=== PATIENT | female | born 1975 | race Caucasian/White ===

== ENCOUNTER 2018-11-21 08:19 | Day surgery (SDC) | payer MEDICAID ==
[~2018-11-21 08:19] MED LIST: Lactated Ringers 1,000 ML IV SCH; Sodium Chloride 0.9% 10 ML Syringe FLUSH PRN; Sodium Chloride 0.9% 2.5 ML Syringe FLUSH PRN
[2018-11-21] MEDS ORDERED: Scopolamine 1.5 MG Transdermal Patch TRDERM PRN (08:42)
[2018-11-21] MEDS ORDERED: Scopolamine 1.5 MG Transdermal Patch ONE (08:44)
--- NOTE | 2018-11-21 08:48 | PCM.PREANE ---
Preanesthetic Assessment - Anesthesia/Transfusion/Family Hx Anesthesia History: Prior Anesthesia Without Reaction Family History of Anesthesia Reaction: No Transfusion History: No Prior Transfusion(s) Intubation History: Unknown - Review of Systems General: No Symptoms Pulmonary: No Symptoms Cardiovascular: No Symptoms Gastrointestinal: Constipation, Difficulty Swallowing Neurological: No Symptoms Other: Reports: None - Physical Assessment O2 Sat by Pulse Oximetry: 98 Respiratory Rate: 16 Vital Signs: Last Vital Signs Temp 36.1 C 11/21/18 08:34 Pulse 78 11/21/18 08:34 Resp 16 11/21/18 08:34 BP 120/76 11/21/18 08:34 Pulse Ox 98 11/21/18 08:34 Height: 1.63 m Weight: 88.904 kg ASA Class: 2 Mental Status: Alert & Oriented x3 Airway Class: Mallampati = 2 Dentition: Reports: Normal Dentition Thyro-Mental Finger Breadths: 2 Mouth Opening Finger Breadths: 3 ROM/Head Extension: Full Lungs: Clear to Auscultation, Normal Respiratory Effort Cardiovascular: Regular Rate, Regular Rhythm - Allergies Allergies/Adverse Reactions: Allergies Allergy/AdvReac Type Severity Reaction Status Date / Time Penicillins Allergy Anaphylactic Verified 11/19/18 08:06 Shock - Blood Blood Available: No - Anesthesia Plan Pre-Op Medication Ordered: None - Acknowledgements Anesthesia Type Planned: MAC Pt an Appropriate Candidate for the Planned Anesthesia: Yes Alternatives and Risks of Anesthesia Discussed w Pt/Guardian: Yes Pt/Guardian Understands and Agrees with Anesthesia Plan: Yes PreAnesthesia Questionnaire HEENT History: Reports: Other (See Below) Other HEENT History: wears glasses Cardiovascular History: Reports: Hypertension Respiratory History: Reports: SOB Other Respiratory History: SOB on exertion, can't walk 2 blocks without SOB - recent PFTs [place] Gastrointestinal History: Reports: GERD Genitourinary History: Reports: None 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: Reports: 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 Musculoskeletal History: Reports: Other (See Below) Other Musculoskeletal History: generalized chronic muscle pain Neurological History: Reports: Migraines Psychiatric History: Reports: Anxiety, Depression Endocrine/Metabolic History: Reports: Hypothyroidism, Obesity/BMI 30+ Immunologic History: Reports: Other (See Below) (possible autoimmune disorder) - Past Surgical History Head Surgeries/Procedures: Reports: None Female Surgical History: Reports: Hysterectomy, LEEP Other Female Surgeries/Procedures: exploratory laparoscopy x5 Endocrine Surgical History: Reports: Thyroidectomy - SUBSTANCE USE Smoking Status *Q: Never Smoker Recreational Drug Use History: No - HOME MEDS Home Medications: Home Meds Azelastine/Fluticasone [Dymista Nasal [place]] 2 spray NASBOTH DAILY 11/19/18 [ History] Calcium Carbonate [Calcium] 1 tab PO DAILY 11/19/18 [History] Cholecalciferol (Vitamin D3) [Vitamin D3] 2 tab PO DAILY 11/19/18 [History] DULoxetine HCl [Cymbalta] 30 mg PO BID 11/19/18 [History] Levothyroxine Sodium [Synthroid] 125 mcg PO DAILY 11/19/18 [History] Lisinopril/Hydrochlorothiazide [Lisinopril-Hctz 10-12.5 mg Tab] 1 tab PO DAILY 11/19/18 [History] Multivitamin [Multivitamins] 1 tab PO DAILY 11/19/18 [History] [place]-3/DHA/Epa/Fish Oil [[place]-3 Fish Oil 1,000 MG Sfgl] 1,000 mg PO DAILY 03/02 [History] Ranitidine HCl [Ranitidine] 300 mg PO DAILY 11/19/18 [History] Rizatriptan Benzoate [Rizatriptan] 10 mg PO ASDIRECTED PRN 11/19/18 [History] busPIRone [Buspar] 10 mg PO DAILY 11/19/18 [History] - CURRENT (IN HOUSE) MEDS Current Meds: Current Medications Lactated Ringer's (Ringers, Lactated) 1,000 mls @ 125 mls/hr IV ASDIRECTED [facility] Last Admin: 11/21/18 08:41 Dose: 125 mls/hr Sodium Chloride (Saline Flush) 10 ml FLUSH ASDIRECTED PRN PRN Reason: Keep Vein Open Sodium Chloride (Saline Flush) 2.5 ml FLUSH ASDIRECTED PRN PRN Reason: Keep Vein Open Sodium Chloride (Saline Flush) 10 ml FLUSH ASDIRECTED PRN PRN Reason: Keep Vein Open Sodium Chloride (Saline Flush) 2.5 ml FLUSH ASDIRECTED PRN PRN Reason: Keep Vein Open
[2018-11-21] MEDS ORDERED: Midazolam 1 MG/ML 2 ML SDV ONE (10:56)
[2018-11-21] MEDS ORDERED: fentaNYL 100 MCG/2 ML SDV ONE (10:57)
[2018-11-21] MEDS ORDERED: Propofol 200 MG/20 ML SDV ONE ×2 (10:59→11:26)
--- NOTE | 2018-11-21 11:38 | PCM.OPNOTE ---
- General Post-Op/Procedure Note Date of Surgery/Procedure: 11/21/18 Operative Procedure(s): Diagnostic EGD and colonoscopy Findings: Hiatal hernia with GERD and esophagitis Pre Op Diagnosis: Dysphagia, change in bowel habits Post-Op Diagnosis: Hiatal hernia with GERD and esophagitis Anesthesia Technique: ROEL Primary Surgeon: Jewels Frazier Condition: Good
--- NOTE | 2018-11-21 18:38 | OR ---
SURGEON: YONG DEL ROSARIO MD DATE OF PROCEDURE: 11/21/2018 PREOPERATIVE DIAGNOSES: 1. Dysphagia. 2. Change in bowel habits. POSTOPERATIVE DIAGNOSES: 1. Hiatal hernia with gastroesophageal reflux disease and esophagitis. 2. Normal colonoscopy. PROCEDURES PERFORMED: Diagnostic EGD and colonoscopy. ANESTHESIA: MAC. INSTRUMENT USED: Olympus endoscope and colonoscope. EXTENT OF EXAM: To the second portion of duodenum, to the cecum. PREPARATION: Good. LIMITATIONS: None. INDICATION FOR EXAMINATION: The patient is a 43-year-old female who presents with progressive dysphagia. A preoperative esophagram showed hiatal hernia. She also is complaining about a change in her bowel habits. There is a family history of colon issues. The patient and I discussed the need for diagnostic EGD and colonoscopy. The patient and I discussed the procedure, expected perioperative course, and risks including bleeding, infection, or damage to surrounding structures including perforation. The patient verbalized understanding and wishes to proceed. PROCEDURE IN DETAIL: The patient was brought into the endoscopy suite and placed in the left lateral decubitus position. A time-out was completed verifying the patient's name, age, date of , allergies, and procedure to be performed. A bite block was placed into the patient's mouth. Monitored anesthesia care was induced and continuous oxygen was provided via nasal cannula throughout the procedure. After adequate sedation was achieved, a well lubricated endoscope was placed in the patient's mouth and advanced under direct visualization to the second portion of duodenum. This appeared normal and a photograph was taken. The scope was then straightened out and fully withdrawn while examining the color, texture, anatomy, and integrity mucosa of the upper GI tract. The duodenal mucosa appeared normal. The scope was brought into the stomach and a photograph was taken of the pylorus and the GE junction. The patient was noted to have a hiatal hernia. The gastric mucosa itself appeared free of any gross inflammation or ulceration. Biopsies were taken of the gastric antrum, body, and fundus and sent for histologic review and H. pylori testing. The scope was then brought into the distal esophagus and a photograph was taken of the hiatal hernia as well as the Z-line, which is up in the chest. The distal esophageal mucosa just above the Z-line appeared inflamed with some small ulcerated areas. A biopsy of this was taken and sent to histology, labeled as the esophagus. The remainder of the esophageal mucosa appeared normal. The scope was removed and this portion of procedure was terminated. I then turned my attention to the colonoscopic portion of the procedure. A digital rectal exam was performed. The patient had hemorrhoidal skin tags in the right anterior and right posterior areas. Otherwise, the MIKEL was normal. A well lubricated colonoscope was inserted into the rectum and advanced under direct visualization to the level of the cecum. The cecum was identified by both visual and anatomic landmarks. A photograph was taken of the cecal cap as well as with the scope retroflexed within the cecum. The scope was then straightened out and fully withdrawn while examining the color, texture, anatomy, and integrity mucosa of the upper GI tract. The findings were consistent with normal colonic mucosa. The scope was then brought into the rectum and retroflexed to allow visualization of the anal canal opening. This appeared normal and a photograph was taken. The scope was then straightened out and fully withdrawn. The cecum to anus time was 7 minutes. The patient tolerated procedure well and was taken to PACU in stable condition. ENDOSCOPIC DIAGNOSES: 1. Hiatal hernia with gastroesophageal reflux disease and esophagitis. 2. Normal colonoscopy. RECOMMENDATIONS: Follow up in clinic in 2 weeks. CARA EGAN /[id number]
== END 2018-11-21 12:23 | disposition home or self-care (01) ==
LOC: MW.SDS 08:19
PROVIDERS: ATTEND Surgery
DX: K20.9 Esophagitis, unspecified (principal); K44.9 Diaphragmatic hernia without obstruction or gangrene; R19.4 Change in bowel habit; K64.4 Residual hemorrhoidal skin tags; I10 Essential (primary) hypertension; E66.9 Obesity, unspecified; Z68.33 Body mass index [BMI] 33.0-33.9, adult; K21.9 Gastro-esophageal reflux disease without esophagitis; E03.9 Hypothyroidism, unspecified; F41.9 Anxiety disorder, unspecified; F32.9 Major depressive disorder, single episode, unspecified; G43.909 Migraine, unspecified, not intractable, without status migrainosus; Z79.899 Other long term (current) drug therapy; Z79.890 Hormone replacement therapy; Z88.0 Allergy status to penicillin; Z80.0 Family history of malignant neoplasm of digestive organs
CPT/HCPCS: 43239; 45378; A9270; J2250; J2704; J3010; J7120; 88305; 88312

== ENCOUNTER 2019-03-11 10:39 | Emergency (ER) | payer MEDICAID ==
--- NOTE | 2019-03-11 10:53 | EDM.PDOC ---
ED HPI GENERAL MEDICAL PROBLEM - General Chief Complaint: ENT Problem Stated Complaint: STREP THROAT Time Seen by Provider: 03/11/19 10:46 - History of Present Illness INITIAL COMMENTS - FREE TEXT/NARRATIVE: HISTORY AND PHYSICAL: History of present illness: Patient is a 43-year-old white female presents with a concern of sore throat patient states she had similar episodes in the past with strep this is universally respond to either Bactrim or Z-Murali. She denies fever chills nausea vomiting or other complaints Review of systems: As per history of present illness and below otherwise all systems reviewed and negative. Past medical history: As per history of present illness and as reviewed below otherwise noncontributory. Surgical history: As per history of present illness and as reviewed below otherwise noncontributory. Social history: No reported history of drug or alcohol abuse. Family history: As per history of present illness and as reviewed below otherwise noncontributory. Physical exam: HEENT: Atraumatic, normocephalic, pupils reactive, negative for conjunctival pallor or scleral icterus, mucous membranes moist, throat injected neck supple, nontender, trachea midline. Lungs: Clear to auscultation, breath sounds equal bilaterally, chest nontender. Heart: S1S2, regular, negative for clicks, rubs, or JVD. Abdomen: Soft, nondistended, nontender. Negative for masses or hepatosplenomegaly. Negative for costovertebral tenderness. Pelvis: Stable nontender. Genitourinary: Deferred. Rectal: Deferred. Extremities: Atraumatic, negative for cords or calf pain. Neurovascular unremarkable. Neuro: Awake, alert, oriented. Cranial nerves II through XII unremarkable. Cerebellum unremarkable. Motor and sensory unremarkable throughout. Exam nonfocal. Diagnostics: Deferred Therapeutics: None Impression: #1 pharyngitis Definitive disposition and diagnosis as appropriate pending reevaluation and review of above. throat Pain Score (Numeric/FACES): 4 - Related Data Allergies Allergy/AdvReac Type Severity Reaction Status Date / Time Penicillins Allergy Anaphylactic Verified 03/11/19 10:49 Shock Home Meds: Home Meds Azelastine/Fluticasone [Dymista Nasal [place]] 2 spray NASBOTH DAILY 11/19/18 [ History] Calcium Carbonate [Calcium] 1 tab PO DAILY 11/19/18 [History] Cholecalciferol (Vitamin D3) [Vitamin D3] 2 tab PO DAILY 11/19/18 [History] DULoxetine HCl [Cymbalta] 30 mg PO BID 11/19/18 [History] Levothyroxine Sodium [Synthroid] 125 mcg PO DAILY 11/19/18 [History] Lisinopril/Hydrochlorothiazide [Lisinopril-Hctz 10-12.5 mg Tab] 1 tab PO DAILY 11/19/18 [History] Multivitamin [Multivitamins] 1 tab PO DAILY 11/19/18 [History] [place]-3/DHA/Epa/Fish Oil [[place]-3 Fish Oil 1,000 MG Sfgl] 1,000 mg PO DAILY 03/02 [History] Rizatriptan Benzoate [Rizatriptan] 10 mg PO ASDIRECTED PRN 11/19/18 [History] busPIRone [Buspar] 10 mg PO DAILY 11/19/18 [History] Pantoprazole [ProTONIX] 40 mg PO DAILY #30 tab.cr 11/21/18 [Rx] Past Medical History HEENT History: Reports: Other (See Below) Other HEENT History: wears glasses Cardiovascular History: Reports: Hypertension Respiratory History: Reports: SOB Other Respiratory History: SOB on exertion, can't walk 2 blocks without SOB - recent PFTs [place] Gastrointestinal History: Reports: GERD Genitourinary History: Reports: None 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: 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 Musculoskeletal History: Reports: Other (See Below) Other Musculoskeletal History: generalized chronic muscle pain Neurological History: Reports: Migraines Psychiatric History: Reports: Anxiety, Depression Endocrine/Metabolic History: Reports: Hypothyroidism, Obesity/BMI 30+ Immunologic History: Reports: Other (See Below) (possible autoimmune disorder) - Past Surgical History Head Surgeries/Procedures: Reports: None Female Surgical History: Reports: Hysterectomy, LEEP Other Female Surgeries/Procedures: exploratory laparoscopy x5 Endocrine Surgical History: Reports: Thyroidectomy ED ROS GENERAL - Review of Systems Review Of Systems: ROS reveals no pertinent complaints other than HPI. ED EXAM, GENERAL - Physical Exam Exam: See Below (See dictation) Course - Vital Signs Last Recorded V/S: Last Vital Signs Temp 36.6 C 03/11/19 10:47 Pulse 90 03/11/19 10:47 Resp 18 03/11/19 10:47 BP 138/88 03/11/19 10:47 Pulse Ox 95 03/11/19 10:47 Departure - Departure Time of Disposition: 10:52 Disposition: Home, Self-Care 01 Condition: Good Clinical Impression: Pharyngitis - Discharge Information Referrals: Clarice Zhou, TRIPLE DRUM OPERATOR [Primary Care Provider] - Additional Instructions: The following information is given to patients seen in the emergency department who are being discharged to home. This information is to outline your options for follow-up care. We provide all patients seen in our emergency department with a follow-up referral. The need for follow-up, as well as the timing and circumstances, are variable depending upon the specifics of your emergency department visit. If you don't have a primary care physician on staff, we will provide you with a referral. We always advise you to contact your personal physician following an emergency department visit to inform them of the circumstance of the visit and for follow-up with them and/or the need for any referrals to a consulting specialist. The emergency department will also refer you to a specialist when appropriate. This referral assures that you have the opportunity for followup care with a specialist. All of these measure are taken in an effort to provide you with optimal care, which includes your followup. Under all circumstances we always encourage you to contact your private physician who remains a resource for coordinating your care. When calling for followup care, please make the office aware that this follow-up is from your recent emergency room visit. If for any reason you are refused follow-up, please contact the [facility] emergency department at and asked to speak to the emergency department charge nurse. Bactrim as prescribed Motrin/Tylenol as directed follow-up primary medical doctor as needed as discussed and return as needed as discussed
== END 2019-03-11 11:08 | disposition home or self-care (01) ==
LOC: MW.ED 10:39
DX: J02.9 Acute pharyngitis, unspecified (principal); Z88.0 Allergy status to penicillin; Z79.899 Other long term (current) drug therapy
CPT/HCPCS: 99282

== ENCOUNTER 2019-03-16 18:49 | Emergency (ER) | payer MEDICAID ==
--- NOTE | 2019-03-16 18:55 | EDM.PDOC ---
ED HPI GENERAL MEDICAL PROBLEM - General Chief Complaint: Headache Stated Complaint: MIGRAINE X 3 DAYS Time Seen by Provider: 03/16/19 18:53 Source of Information: Reports: Patient History Limitations: Reports: No Limitations - History of Present Illness INITIAL COMMENTS - FREE TEXT/NARRATIVE: HISTORY AND PHYSICAL: History of present illness: Patient is a 43-year-old female who presents to the emergency room today with complaints of a migraine headache 4 days. She states she has a long-standing history of migraine headaches, since age of 16. She states she does take rescue medications for these which typically work. She has been taken this medication over the past 2 days without any relief. She does have light sensitivity, noise sensitivity and nausea. She denies any recent head injury, trauma or falls. Review of systems: As per history of present illness and below otherwise all systems reviewed and negative. Past medical history: As per history of present illness and as reviewed below otherwise noncontributory. Surgical history: As per history of present illness and as reviewed below otherwise noncontributory. Social history: See social history for further information Family history: As per history of present illness and as reviewed below otherwise noncontributory. Physical exam: General: Well-developed and well-nourished 43-year-old female. Alert and oriented. Nontoxic appearing and in no acute distress. HEENT: Atraumatic, normocephalic, pupils equal and reactive bilaterally, negative for conjunctival pallor or scleral icterus, mucous membranes moist, TMs normal bilaterally, throat clear, neck supple, nontender, trachea midline. No drooling or trismus noted. No meningeal signs. No hot potato voice noted. Lungs: Clear to auscultation, breath sounds equal bilaterally, chest nontender. Heart: S1S2, regular rate and rhythm without overt murmur Abdomen: Soft, nondistended, nontender. Skin: Intact, warm, dry. No lesions or rashes noted. Extremities: Atraumatic, moves all extremities per self without difficulty or deficits, negative for cords or calf pain. Neurovascular unremarkable. Neuro: Awake, alert, oriented. Cranial nerves II through XII unremarkable. Cerebellum unremarkable. Motor and sensory unremarkable throughout. Exam nonfocal. Notes: We did discuss doing a head CT, she declines. She states that this headache is no worse than her typical migraines. She does have a ride today, I will give her some IV medications along with fluids. She currently is taking antibiotics for strep throat. Patient feels improved after IV fluids and medications. Vital signs are stable and have been reviewed by me. Supportive care measures were reviewed and discussed. Voices understanding and is agreeable to plan of care. Denies any further questions or concerns at this time. Diagnostics: None Therapeutics: IV fluid, Zofran, Ativan, Toradol Prescription: None Impression: Migraine Headache Plan: 1. Please take the remainder of the day to rest in a dark and quiet room. The medications he received today do cause drowsiness a do not drive. 2. You may take your rescue migraine medications as needed 3. Follow-up with your primary care provider as we discussed. Return to the ED as needed and as discussed. Definitive disposition and diagnosis as appropriate pending reevaluation and review of above. Occipital Head Pain Score (Numeric/FACES): 8 - Related Data Allergies Allergy/AdvReac Type Severity Reaction Status Date / Time Penicillins Allergy Anaphylactic Verified 03/16/19 18:53 Shock Home Meds: Home Meds Azelastine/Fluticasone [Dymista Nasal [place]] 2 spray NASBOTH DAILY 11/19/18 [ History] Cholecalciferol (Vitamin D3) [Vitamin D3] 2 tab PO DAILY 11/19/18 [History] DULoxetine HCl [Cymbalta] 30 mg PO BID 11/19/18 [History] Levothyroxine Sodium [Synthroid] 125 mcg PO DAILY 11/19/18 [History] Lisinopril/Hydrochlorothiazide [Lisinopril-Hctz 10-12.5 mg Tab] 1 tab PO DAILY 11/19/18 [History] Multivitamin [Multivitamins] 1 tab PO DAILY 11/19/18 [History] Rizatriptan Benzoate [Rizatriptan] 10 mg PO ASDIRECTED PRN 11/19/18 [History] busPIRone [Buspar] 10 mg PO DAILY 11/19/18 [History] Pantoprazole [ProTONIX] 40 mg PO DAILY #30 tab.cr 11/21/18 [Rx] Sulfamethoxazole/Trimethoprim [Bactrim Ds Tablet] 1 tab PO DAILY 03/16/19 [ History] Past Medical History HEENT History: Reports: Other (See Below) Other HEENT History: wears glasses Cardiovascular History: Reports: Hypertension Respiratory History: Reports: SOB Other Respiratory History: SOB on exertion, can't walk 2 blocks without SOB - recent PFTs [place] Gastrointestinal History: Reports: GERD Genitourinary History: Reports: None 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 Musculoskeletal History: Reports: Other (See Below) Other Musculoskeletal History: generalized chronic muscle pain Neurological History: Reports: Migraines Psychiatric History: Reports: Anxiety, Depression Endocrine/Metabolic History: Reports: Hypothyroidism, Obesity/BMI 30+ Immunologic History: Reports: Other (See Below) (possible autoimmune disorder) - Infectious Disease History Infectious Disease History: Reports: Chicken Pox, Shingles - Past Surgical History Head Surgeries/Procedures: Reports: None Female Surgical History: Reports: Hysterectomy, LEEP Other Female Surgeries/Procedures: exploratory laparoscopy x5 Endocrine Surgical History: Reports: Thyroidectomy Social & Family History - Family History Family Medical History: Noncontributory ED ROS GENERAL - Review of Systems Review Of Systems: ROS reveals no pertinent complaints other than HPI. - Physical Exam Exam: See Below (See dictation) Course - Vital Signs Last Recorded V/S: Last Vital Signs Temp 97.0 F 03/16/19 18:54 Pulse 91 03/16/19 19:51 Resp 18 03/16/19 19:51 BP 127/86 03/16/19 19:51 Pulse Ox 97 03/16/19 19:51 - Orders/Labs/Meds Orders: Active Orders 24 hr Category Date Time Status Sodium Chloride 0.9% [Normal Saline] 1,000 ml Med 03/16/19 18:59 Active IV STAT Medication Orders Sodium Chloride (Normal Saline) 1,000 mls @ 999 mls/hr IV STAT ONE Stop: 03/16/19 19:59 Last Admin: 03/16/19 19:08 Dose: 999 mls/hr Meds: Medications Generic Name Dose Route Start Last Admin Trade Name Freq PRN Reason Stop Dose Admin Sodium Chloride 1,000 mls @ 999 mls/hr 03/16/19 18:59 03/16/19 19:08 Normal Saline IV 03/16/19 19:59 999 mls/hr STAT ONE Administration Discontinued Medications Generic Name Dose Route Start Last Admin Trade Name Freq PRN Reason Stop Dose Admin Ketorolac Tromethamine 30 mg 03/16/19 18:59 03/16/19 19:13 Toradol IVPUSH 03/16/19 19:00 30 mg ONETIME ONE Administration Lorazepam 1 mg 03/16/19 19:00 03/16/19 19:15 Ativan IVPUSH 03/16/19 19:01 1 mg ONETIME ONE Administration Ondansetron HCl 4 mg 03/16/19 18:59 03/16/19 19:11 Zofran IVPUSH 03/16/19 19:00 4 mg ONETIME ONE Administration Departure - Departure Time of Disposition: 19:55 Disposition: Home, Self-Care 01 Clinical Impression: Migraine - Discharge Information Instructions: Migraine Headache, [id number] Referrals: PCP,None [Primary Care Provider] - Forms: ED Department Discharge Additional Instructions: The following information is given to patients seen in the emergency department who are being discharged to home. This information is to outline your options for follow-up care. We provide all patients seen in our emergency department with a follow-up referral. The need for follow-up, as well as the timing and circumstances, are variable depending upon the specifics of your emergency department visit. If you don't have a primary care physician on staff, we will provide you with a referral. We always advise you to contact your personal physician following an emergency department visit to inform them of the circumstance of the visit and for follow-up with them and/or the need for any referrals to a consulting specialist. The emergency department will also refer you to a specialist when appropriate. This referral assures that you have the opportunity for follow-up care with a specialist. All of these measure are taken in an effort to provide you with optimal care, which includes your follow-up. Under all circumstances we always encourage you to contact your private physician who remains a resource for coordinating your care. When calling for follow-up care, please make the office aware that this follow-up is from your recent emergency room visit. If for any reason you are refused follow-up, please contact the [facility] Emergency Department at and asked to speak to the emergency department charge nurse. [facility] [address] [place] [address] [id number] [place] [address] 1. Please take the remainder of the day to rest in a dark and quiet room. The medications you received today do cause drowsiness so do not drive. 2. You may take your rescue migraine medications as needed 3. Follow-up with your primary care provider as we discussed. Return to the ED as needed and as discussed. - My Orders Last 24 Hours: My Active Orders 03/16/19 18:59 Sodium Chloride 0.9% [Normal Saline] 1,000 ml IV STAT - Assessment/Plan Last 24 Hours: My Active Orders 03/16/19 18:59 Sodium Chloride 0.9% [Normal Saline] 1,000 ml IV STAT
[2019-03-16] MEDS ORDERED: Ketorolac 30 MG/ML SDV IVPUSH ONE (18:59)
[2019-03-16] MEDS ORDERED: Sodium Chloride 0.9% 1,000 ML IV ONE (18:59)
[2019-03-16] MEDS ORDERED: Ondansetron 4 MG/2 ML SDV IVPUSH ONE (18:59)
[2019-03-16] MEDS ORDERED: LORazepam 2 MG/ML SDV IVPUSH ONE (19:00)
== END 2019-03-16 20:00 | disposition home or self-care (01) ==
LOC: MW.ED 18:49
DX: G43.909 Migraine, unspecified, not intractable, without status migrainosus (principal); I10 Essential (primary) hypertension; K21.9 Gastro-esophageal reflux disease without esophagitis; F41.9 Anxiety disorder, unspecified; F32.9 Major depressive disorder, single episode, unspecified; Z79.899 Other long term (current) drug therapy
CPT/HCPCS: 96361; 96374; 96375; 99283; J1885; J2060; J2405; J7040

== ENCOUNTER 2019-07-25 11:01 | Emergency (ER) | payer MEDICAID ==
--- NOTE | 2019-07-25 11:43 | EDM.PDOC ---
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 Patient denies any difficulty breathing or swallowing at this time. She does have 2 ulcers in the back of her throat that are painful. She denies any fevers or chills, nausea or vomiting or any other complaints. Review of systems: As per history of present illness and below otherwise all systems reviewed and negative. Past medical history: As per history of present illness and as reviewed below otherwise noncontributory. Surgical history: As per history of present illness and as reviewed below otherwise noncontributory. Social history: No reported history of drug or alcohol abuse. Family history: As per history of present illness and as reviewed below otherwise noncontributory. Physical exam: General: Well developed, well nourished in NAD HEENT: Atraumatic, normocephalic, pupils reactive, negative for conjunctival pallor or scleral icterus, mucous membranes moist, throat clear no erythema, there is 2 small superficial ulcers and posterior pharynx, neck supple, nontender, trachea midline. No stridor, TMs are clear Lungs: Clear to auscultation, breath sounds equal bilaterally, chest nontender. No wheezing or rhonchi Heart: S1S2, regular, negative for clicks, rubs, or JVD. Abdomen: NABS, Soft, nondistended, nontender. Negative for masses or hepatosplenomegaly. Negative for costovertebral tenderness. Pelvis: Stable nontender. Genitourinary: Deferred. Rectal: Deferred. Extremities: Atraumatic, negative for cords or calf pain. Neurovascular unremarkable. Neuro: Awake, alert, oriented. Cranial nerves II through XII unremarkable. Cerebellum unremarkable. Motor and sensory unremarkable throughout. Exam nonfocal. Skin:warm and dry Diagnostics: Rapid strep negative Therapeutics: negative ED Course: Stable Impression: aphthous ulcers, viral pharyngitis Prescriptions: None Plan: Take meds as directed, follow up with your primary care physician, return to ER if symptoms worsen or change. Definitive disposition and diagnosis as appropriate pending reevaluation and review of above. Throat Pain Score (Numeric/FACES): 4 - Related Data Allergies Allergy/AdvReac Type Severity Reaction Status Date / Time Penicillins Allergy Anaphylactic Verified 07/25/19 11:19 Shock Home Meds: Home Meds Azelastine/Fluticasone [Dymista Nasal Kramer] 2 spray NASBOTH DAILY 11/19/18 [ History] Cholecalciferol (Vitamin D3) [Vitamin D3] 2 tab PO DAILY 11/19/18 [History] DULoxetine HCl [Cymbalta] 30 mg PO BID 11/19/18 [History] Levothyroxine Sodium [Synthroid] 125 mcg PO DAILY 11/19/18 [History] Lisinopril/Hydrochlorothiazide [Lisinopril-Hctz 10-12.5 mg Tab] 1 tab PO DAILY 11/19/18 [History] Multivitamin [Multivitamins] 1 tab PO DAILY 11/19/18 [History] Rizatriptan Benzoate [Rizatriptan] 10 mg PO ASDIRECTED PRN 11/19/18 [History] busPIRone [Buspar] 10 mg PO DAILY 11/19/18 [History] Pantoprazole [ProTONIX] 40 mg PO DAILY #30 tab.cr 11/21/18 [Rx] Past Medical History HEENT History: Reports: Other (See Below) Other HEENT History: wears glasses Cardiovascular History: Reports: Hypertension Respiratory History: Reports: SOB Other Respiratory History: SOB on exertion, can't walk 2 blocks without SOB - recent PFTs [place] Gastrointestinal History: Reports: GERD Genitourinary History: Reports: None 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: 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 Musculoskeletal History: Reports: Other (See Below) Other Musculoskeletal History: generalized chronic muscle pain Neurological History: Reports: Migraines Psychiatric History: Reports: Anxiety, Depression Endocrine/Metabolic History: Reports: Hypothyroidism, Obesity/BMI 30+ Immunologic History: Reports: Other (See Below) - Infectious Disease History Infectious Disease History: Reports: Chicken Pox, Shingles - Past Surgical History Head Surgeries/Procedures: Reports: None Female Surgical History: Reports: Hysterectomy, LEEP Other Female Surgeries/Procedures: exploratory laparoscopy x5 Endocrine Surgical History: Reports: Thyroidectomy Social & Family History - Family History Family Medical History: Noncontributory - Tobacco Use Smoking Status *Q: Never Smoker - Caffeine Use Caffeine Use: Reports: Coffee - Recreational Drug Use Recreational Drug Use: No ED ROS ENT - Review of Systems Review Of Systems: See Below ED EXAM, ENT - Physical Exam Exam: See Below Course - Vital Signs Last Recorded V/S: Last Vital Signs Temp 96.9 F 07/25/19 11:20 Pulse 78 07/25/19 11:20 Resp 18 07/25/19 11:20 BP 117/83 07/25/19 11:20 Pulse Ox 97 07/25/19 11:20 - Orders/Labs/Meds Orders: Active Orders 24 hr Category Date Time Status CULTURE STREP A CONFIRMATION [] Stat Lab 07/25/19 11:24 Results STREP SCRN A RAPID W CULT CONF [] Stat Lab 07/25/19 11:24 Results Departure - Departure Time of Disposition: 11:42 Disposition: Home, Self-Care 01 Condition: Good Clinical Impression: Viral pharyngitis, Aphthous ulcer - Discharge Information *PRESCRIPTION DRUG MONITORING PROGRAM REVIEWED*: No *COPY OF PRESCRIPTION DRUG MONITORING REPORT IN PATIENT TYSHAWN: No Referrals: Clarice Zhou 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 This information is to outline your options for follow-up care. We provide all patients seen in our emergency department with a follow-up referral. The need for follow-up, as well as the timing and circumstances, are variable depending upon the specifics of your emergency department visit. If you don't have a primary care physician on staff, we will provide you with a referral. We always advise you to contact your personal physician following an emergency department visit to inform them of the circumstance of the visit and for follow-up with them and/or the need for any referrals to a consulting specialist. The emergency department will also refer you to a specialist when appropriate. This referral assures that you have the opportunity for follow-up care with a specialist. All of these measure are taken in an effort to provide you with optimal care, which includes your follow-up. Under all circumstances we always encourage you to contact your private physician who remains a resource for coordinating your care. When calling for follow-up care, please make the office aware that this follow-up is from your recent emergency room visit. If for any reason you are refused follow-up, please contact the [facility] Emergency Department at and asked to speak to the emergency department charge nurse. Take meds as directed, follow up with your primary care physician, return to ER if symptoms worsen or change. [facility] [address] [place] [id number] - My Orders Last 24 Hours: My Active Orders 07/25/19 11:24 CULTURE STREP A CONFIRMATION [RM] Stat STREP SCRN A RAPID W CULT CONF [RM] Stat - Assessment/Plan Last 24 Hours: My Active Orders 07/25/19 11:24 CULTURE STREP A CONFIRMATION [RM] Stat STREP SCRN A RAPID W CULT CONF [RM] Stat
== END 2019-07-25 11:55 | disposition home or self-care (01) ==
LOC: MW.ED 11:01
DX: J02.8 Acute pharyngitis due to other specified organisms (principal); B97.89 Other viral agents as the cause of diseases classified elsewhere; K12.0 Recurrent oral aphthae; I10 Essential (primary) hypertension; E03.9 Hypothyroidism, unspecified; K21.9 Gastro-esophageal reflux disease without esophagitis; F41.9 Anxiety disorder, unspecified; F32.9 Major depressive disorder, single episode, unspecified; E66.9 Obesity, unspecified; Z68.30 Body mass index [BMI] 30.0-30.9, adult; Z88.0 Allergy status to penicillin; Z79.899 Other long term (current) drug therapy
CPT/HCPCS: 87081; 87880-QW; 99283